=== PATIENT | male | born 1955 | race Two or more races ===

== ENCOUNTER 2022-02-14 12:15 | Emergency (ER) | payer OTHER ==
[~2022-02-14] VITALS: Ht 180.3 cm; Wt 61.2 kg
[2022-02-14 14:01] LABS: Basophils # (auto) 0.1 10 ^3/uL (0-0.2); Basophils % (auto) 0.6 % (0.0-2.0); Eosinophils # (auto) 0.1 10 ^3/uL (0-0.8); Eosinophils % (auto) 1.1 % (0.0-7.0); Hematocrit 47.7 % (41.0-53.0); Hemoglobin 16.4 g/dL (13.5-17.5); Lymphocytes # (auto) 1.5 10 ^3/uL (0.4-5.4); Lymphocytes % (auto) 14.7 % (10.0-50.0); Mean Corpuscular Hemoglobin 30.9 pg (28.0-32.0); Mean Corpuscular Hgb Conc. 34.5 g/dL (32.0-36.0); Mean Corpuscular Volume 89.7 fL (80.0-100.0); Monocytes # (auto) 1.1 10 ^3/uL (0-1.3); Monocytes % (auto) 10.5 % (0.0-12.0); Neutrophils # (auto) 7.4 10 ^3/uL (1.6-8.6); Neutrophils % (auto) 73.1 % (37.0-80.0); Red Blood Cells 5.32 10^6/uL (4.5-5.90); Red Cell Distribution Width 13.1 % (11.8-14.3); White Blood Cell 10.1 10^3/uL (4.4-10.8)
[2022-02-14 14:32] LABS: Albumin 4.3 g/dL (3.4-5.0); Calcium 10.5 mg/dL (8.5-10.1); Magnesium 2.4 mg/dL (1.6-2.6); Potassium 3.4 mmol/L (3.5-5.1)
[2022-02-14 14:35] LABS: BUN/Creatinine Ratio 19.3; Bilirubin, Total 0.4 mg/dL (0.2-1.0); Total Protein 8.6 g/dL (6.4-8.2)
[2022-02-14] MEDS ORDERED: IOHEXOL 350 MG/ML 100ML IJ ONE (16:58)
[2022-02-15] MEDS ORDERED: ALUM & MAG HYDROX-SIMETH LIQ(MAALOX) 30 ML PO ONE (00:30)
[2022-02-15] MEDS ORDERED: LIDOCAINE VISCOUS 2% 15ML UD MT ONE (00:30)
[2022-02-15] MEDS ORDERED: METR500T PO (03:19)
[2022-02-15] MEDS ORDERED: CIP500T GT (03:19)
[2022-02-15 03:20] VITALS: BP 171/99
[2022-02-15] MEDS ORDERED: CIPR500T4 PO (03:20)
== END 2022-02-15 04:00 | disposition home or self-care (01) ==
LOC: ER 12:15
DX: R07.89 Other chest pain (principal); J44.9 Chronic obstructive pulmonary disease, unspecified; E11.9 Type 2 diabetes mellitus without complications; I10 Essential (primary) hypertension; Z88.0 Allergy status to penicillin; Z88.1 Allergy status to other antibiotic agents
CPT/HCPCS: 36415; 71045; 71260; 74177; 80053; 83690; 83735; 83880; 84484; 85025; 93005; 99285; Q9967

== ENCOUNTER 2024-08-23 06:48 | Day surgery (SDC) | payer OTHER ==
[2024-08-23] VITALS (11 sets, daily range): BP systolic 110–144; BP diastolic 76–94; PULSE 10–101; RESP 12–18; O2SAT 90–95
[~2024-08-23] VITALS: Ht 172.7 cm; Wt 90.7 kg
[~2024-08-23 06:48] MED LIST: AMLO1TAB22 PO; ASPI-543 PO; CILO100T3 PO; DICY20TA PO; EMPA1TAB PO; FINA5TAB4 PO; FURO40TA4 PO; GLIP5TAB21 PO; HYDR-4902 PO; METH-1181 PO; METO-6 PO; OLME40TA78 PO; OMEP20TA PO; POM PO; POTA-220 PO; PRAS10TA8 PO; ROSU40TA81 PO; SEMA2INJ3 SC; TAMS0.4C39 PO; UMEC1AER IN
[2024-08-23] MEDS ORDERED: IODIXANOL 320MG/ML 100ML BTL IV ONE ×2 (07:27→09:39)
[2024-08-23] MEDS ORDERED: HEPARIN IN NS 1000Units/500mL 1,500 ML ONE (07:27)
[2024-08-23] MEDS ORDERED: ANGIOMAX 250 MG VIAL IV ONE (09:08)
[2024-08-23] MEDS ORDERED: VERAPAMIL 2.5MG/ML INJ 2ML VIAL IV ONE (09:09)
[2024-08-23] MEDS ORDERED: HEPARIN SODIUM (PORCINE) 5000 UNITS/ML 1ML VIAL ONE (09:09)
[2024-08-23] MEDS ORDERED: fentaNYL CITRATE 100 MCG/2 ML VL ONE (09:09)
[2024-08-23] MEDS ORDERED: SODIUM CHL 0.9% 50 ML ONE (09:10)
[2024-08-23] MEDS ORDERED: LIDOCAINE 2%HCL (LOCAL ANESTH.) INJ 20ML MDV ONE (09:10)
[2024-08-23] MEDS ORDERED: MIDAZOLAM HCL 2MG/2ML 2ml VIAL (1mg/ml) ONE (09:10)
[2024-08-23] MEDS ORDERED: CLOPIDOGREL BISULFATE 75 MG TAB ONE (09:55)
--- NOTE | 2024-08-23 10:10 | DVHOP2 ---
Operative Report Operative Report CARDIAC TIRE MOLDER PROCEDURE REPORT [place], [place] Date of Service: 08/23/24 Building Manager: Facundo Brown MD PROCEDURES PERFORMED: Coronary angiogram, left heart catheterization, conscious sedation administration and supervision, less than 15 minutes; fluoroscopy use and interpretation. conscious sedation 15-30 mins, ptca 1 vessel, PCI 1 vessel PREOPERATIVE DIAGNOSES: Abnormal stress test with CCS class 3 angina, POSTOP DIAGNOSIS: severe multivessel CAD DESCRIPTION OF PROCEDURE: The patient or appropriate family signed informed consent understanding the risks, benefits and alternatives of the procedure, they wished to proceed. The patient was brought to the cardiac fish hatchery laborer in n.p.o. state. The patient was prepped in a sterile fashion. Sedation was used per cardiac cath protocol. I administered 2 mL of 2% lidocaine to the right wrist. With an antegrade front wall puncture. I cannulated the right radial artery and placed a 6-Tajik Glidesheath slender. Next, an intra-arterial spasmolytic was administered. Next, a - 6French Sheridan cat heter and XB 3.5 guide and were used for coronary angiogram and LVEDP measurement and pressure pullback. At the completion of procedure, all guides and wires were removed, and there were no immediate complications. FINDINGS: RCA: Moderate vessel off the right sinus of Valsalva, there is a prox RCA EXCEPTIONAL STUDENT EDUCATION AIDE with L to R collateral. previous placed stents. LEFT MAIN: Moderate size left main, it bifurcates into LAD and circumflex. mild plaque CIRCUMFLEX: Moderate caliber vessel coming off the left main with no flow limiting stenosis. LAD: LAD is a moderate caliber vessel coming of the left main. there is a long tubular 90% calcific 35 mm lesion in mid portion. INTERVENTION: We decided to proceed with coronary intervention. I started with a 6F _ XB3 .5___ Guide to intubate the _LM _. Angiomax bolus and gtt was started. Following this, I decided to wire using an .014 BMW across the culprit lesion with ease. At this time, we performed balloon angioplasty with a _ 3.0 x 20 mm balloon by s up to __14 _ ATMS over __15__ seconds with _3_ number of inflations. Next I took a 3 mm NC balloon for PTCA up to 18 atms with 3 separate inflations each 15 seconds to better prep the vessel. Following this, I decided to place a stent using a 3. 0 x 38 mm mm onyx____ stent inflated up to __18___ ATMS over 15 seconds with two separate inflations. Next I placed a distal stent overlapping about 4 mm this was a 3.0 x 12 mm STEVE cindy up to 18 atms with 2 inflations each and then 1 overlap inflation up to 16 atms. Fol lowing this, the stent balloon removed and angio performed showing 0% residual stenosis. JOSE EDUARDO pre/post: 3./3 CONCLUSIONS: 1. sp pci to 90% heavily calcific long tubular stenosis with 2 CINDY 2. RCA EXCEPTIONAL STUDENT EDUCATION AIDE PLAN: Aggressive risk factor modification and medical management for the patient. DAPT x 1 year uninterrupted FACUNDO BROWN MD Aug 23, 2024 10:10
== END 2024-08-23 16:00 | disposition home or self-care (01) ==
LOC: CATH 06:48
PROVIDERS: ATTEND Internal Medicine
DX: I25.119 Atherosclerotic heart disease of native coronary artery with unspecified angina pectoris (principal); I25.82 Chronic total occlusion of coronary artery; R94.39 Abnormal result of other cardiovascular function study; R07.89 Other chest pain; Z79.01 Long term (current) use of anticoagulants; Z98.890 Other specified postprocedural states
CPT/HCPCS: 93458; C1725; C1769; C1874; C1887; C1894; C9600; J0583; J1644; J2250; J3010; J7030; Q9967; 99152; 99153